=== PATIENT | female | born 1960 | race Caucasian/White ===

== ENCOUNTER 2016-09-18 07:48 | Day surgery (SDC) | payer OTHER ==
[~2016-09-18] VITALS: Ht 162.6 cm; Wt 57.0 kg
[~2016-09-18 07:48] MED LIST: FLEXERIL10 MG PO; LORTAB 5-500 T1 EACH PO; LORTAB 7.5/51 TABLET PO; LYRICA75 MG PO; MORPHINE SULFAT15 M1 PO; NEURONTIN600 MG PO; NEURONTIN800 MG PO; OXYCODONE HCL15 MG PO; PERCOCET 5/31 TABLET PO; PRILOSEC20 MG PO; PROTONIX40 MG PO; TRAMADOL HCL E100 M1 PO; [UNRECOGNIZED DRUG - OTHER] PO
[2016-09-18 08:27] VITALS: BP 148/73
[2016-09-18 09:14] LABS: ANION GAP 4 MEQ/L (2-14); CHLORIDE 103 MEQ/L (99-109); GFR ESTIMATE (CALCULATED) > 59 mL/min/; GLUCOSE 86 mg/dL (70-99); POTASSIUM 4.5 MEQ/L (3.7-5.4); SAMPLE HEMOLYSIS CHECK 0; SAMPLE ICTERIC CHECK 0; SAMPLE LIPEMIA CHECK 0; SODIUM 138 MEQ/L (136-147); UREA NITROGEN (BUN) 7 mg/dL (9-23)
[2016-09-18] MEDS ORDERED: NORCO 5/3251 TABLET PO (11:55)
[2016-09-18 15:00] VITALS: BP 180/75
[2016-09-18 16:00] VITALS: BP 172/86
== END 2016-09-18 16:40 | disposition home or self-care (01) ==
LOC: SDC 07:48
PROVIDERS: Surgery
PROC: 0WUF4JZ Supplement Abdominal Wall with Synthetic Substitute, Percutaneous Endoscopic Approach (ICD-10-PCS; principal; 2016-09-18)
DX: K43.2 Incisional hernia without obstruction or gangrene (principal); I10 Essential (primary) hypertension; K21.9 Gastro-esophageal reflux disease without esophagitis; Z98.84 Bariatric surgery status; Z88.0 Allergy status to penicillin; F17.210 Nicotine dependence, cigarettes, uncomplicated; Z82.49 Family history of ischemic heart disease and other diseases of the circulatory system; Z83.3 Family history of diabetes mellitus
CPT/HCPCS: 80048; C1781; J0131; J0330; J0690; J1170; J2250; J2405; J2710; J3010; S0020